=== PATIENT | female | born 1995 | race Caucasian/White ===

== ENCOUNTER 2016-11-15 10:48 | Emergency (ER) | payer OTHER ==
[2016-11-15 11:01] VITALS: BP 106/71; PULSE 64; RESP 19; TEMP 98.6; O2SAT 99
--- NOTE | 2016-11-15 12:07 | ED PDOC ---
HPI: CCC, URI, Sore Throat Time Seen by Provider: 11/15/16 11:36 Chief Complaint (Nursing): Cough, Cold, Congestion Chief Complaint (Provider): cough History Per: Patient History/Exam Limitations: no limitations Additional Complaint(s): 21yo F in ED with c/o core thoart, congestion ear fullness and PASTOR without fever chills night sweats nausea vomiting body aches. no sick contacts no diarrhea or vomiting. admits to improved sore thoart but admits to change in voice. denies swelling, drooling and asymmetry to neck/swelling to neck. Past Medical History Reviewed: Historical Data, Nursing Documentation, Vital Signs Vital Signs: Last Vital Signs Temp 98.6 F 11/15/16 10:59 Pulse 64 11/15/16 10:59 Resp 19 11/15/16 10:59 BP 106/71 11/15/16 10:59 Pulse Ox 99 11/15/16 12:14 - Medical History PMH: No Chronic Diseases - Family History Family History: States: No Known Family Hx - Home Medications Home Medications: Ambulatory Orders Medication Instructions Recorded Guaifenesin [Mucinex] 1,200 mg PO BID #14 ter 11/15/16 - Allergies Allergies/Adverse Reactions: Allergies Allergy/AdvReac Type Severity Reaction Status Date / Time No Known Allergies Allergy Verified 11/15/16 11:16 Review of Systems ROS Statement: Except As Marked, All Systems Reviewed And Found Negative Constitutional: Negative for: Fever, Chills ENT: Positive for: Throat Pain Respiratory: Negative for: Cough, Shortness of Breath Gastrointestinal: Negative for: Nausea, Vomiting Physical Exam - Reviewed Nursing Documentation Reviewed: Yes Vital Signs Reviewed: Yes - Physical Exam Appears: Positive for: Well, Non-toxic, No Acute Distress Head Exam: Positive for: ATRAUMATIC, NORMAL INSPECTION, NORMOCEPHALIC Skin: Positive for: Normal Color, Warm, DRY ENT: Positive for: TM Is/Are (NAD), Pharyngeal Erythema. Negative for: Tonsillar Exudate, Tonsillar Swelling Cardiovascular/Chest: Positive for: Regular Rate, Rhythm Respiratory: Positive for: CNT, Normal Breath Sounds Extremity: Positive for: Normal ROM Neurologic/Psych: Positive for: Alert, Oriented - ECG O2 Sat by Pulse Oximetry: 99 Medical Decision Making Medical Decision Making: impression : viral tests-rapid strep Dx: congestion(viral) dx: mucinex Disposition - Clinical Impression Clinical Impression: Congestion of both ears - Patient ED Disposition Is Patient to be Admitted: No Counseled Patient/Family Regarding: Studies Performed, Diagnosis, Need For Followup, Rx Given - Disposition Disposition: Routine/Home Disposition Time: 14:11 Condition: STABLE Prescriptions: Guaifenesin [Mucinex] 1,200 mg PO BID #14 ter Instructions: Sinusitis (ED), Rhinosinusitis (ED) Forms: [facility] ED School/Work Excuse
== END 2016-11-15 14:27 | disposition home or self-care (01) ==
LOC: H.ER 10:48
DX: H93.8X3 Other specified disorders of ear, bilateral (principal)